=== PATIENT | male | born 1975 | race Caucasian/White ===

== ENCOUNTER 2017-07-06 07:28 | Outpatient (CLI) | payer OTHER ==
[2014-08-07 08:27] VITALS: BP 141/86
[2017-07-06 08:26] LABS: eGFR (African) > 60; eGFR (Non-African) > 60
== END 2017-07-06 07:30 ==
LOC: LAB 07:28
PROVIDERS: ATTEND Family Medicine
DX: I10 Essential (primary) hypertension (principal)
CPT/HCPCS: 36415; 80053; 80061

== ENCOUNTER 2017-12-11 11:58 | Emergency (ER) | payer OTHER ==
--- NOTE | 2017-12-11 12:03 | ED Physician Documentation ---
Upper Extremity Injury - HISTORIAN Historian: patient - [facility] Chief Complaint: Upper Extremity Injury Additional Information: Patient sustained a laceration to the right 4th diget while installing a sink. Cut his finger on a piece of metal. No numbness or weakness noted to the finger. Onset: just prior to arrival Where: home Associated Symptoms: denies: tingling, numbness distally Modifying Factors: pain on movement - ROS CONST: no problems - PAST HX Past History: Rt handed, other (HTN) Immunizations: tetanus (2015) Allergies/Adverse Reactions: Allergies Allergy/AdvReac Type Severity Reaction Status Date / Time No Known Allergies Allergy Verified 12/11/17 12:00 - SOCIAL HX Smoking History: non-smoker Alcohol Use: rarely Drug Use: none - FAMILY HX Family History: no significant history - VITAL SIGNS Vital Signs: Vital Signs Temp Pulse Resp BP Pulse Ox 98.4 F 61 20 132/71 96 12/11/17 13:06 12/11/17 13:06 12/11/17 13:06 12/11/17 13:06 12/11/17 13:06 - REVIEWED ASSESSMENTS Nursing Assessment Reviewed: Yes Vitals Reviewed: Yes Procedures Wound Location: upper extremity (right 4th diget) Wound Length: 3.8 Wound's Depth, Shape: flap Wound Explored: clean Betadine Prep?: No (Dyn-a-hex) Anesthesia: 2% Lidocaine Volume of Anesthetic: 1.8ml Wound Debrided: minimal Wound Repaired With: sutures Suture Size/Type: 5:0 Number of Sutures: 7 Layer Closure?: No ED Results Lab/Radiology - Orders Orders: ED Orders Category Date Time Status Lidocaine 2% 20ml Vial [Xylocaine] Med 12/11/17 13:08 Discontinued 400 mg .ROUTE .STK-MED ONE Upper Extremity Injury Physic - Physical Exam General Appearance: no acute distress (3.8cm c shape laceration), alert Hand: non-tender, normal ROM, laceration (right 4th diget). No: ecchymosis Wrist: normal inspection, non-tender, no evidence of injury Elbow/Forearm: normal inspection, non-tender Shoulder: normal inspection, non-tender Neuro/Vascular/Tendon: no vascular compromise, motor nml, sensation nml Skin: warm,dry, other Neck/Back: nml inspection Resp/CVS: chest non-tender, breath sounds nml, heart sounds nml, no resp. distress, lungs clear, reg. rate & rhythm Abdomen: non-tender Discharge Clincal Impression: Laceration of finger of right hand Referrals: Terrence Jack MD [Primary Care Provider] - 2 Days Additional Instructions: Keep laceration clean and dry. May let water run over it but do not soak. Watch for any infection. Remove sutures in 7-10 days. Condition: Stable Disposition: 01 HOME, SELF-CARE Decision to Admit: NO Date of Decison to Admit: 12/11/17 Decision Time: 12:52
[2017-12-11] MEDS ORDERED: Lidocaine 2% 20ml Vial IP ONE (12:30)
[2017-12-11] MEDS ORDERED: Lidocaine 2% 20ml Vial ONE (13:08)
[2017-12-11 13:15] VITALS: BP 132/71
== END 2017-12-11 13:06 | disposition home or self-care (01) ==
LOC: ED 11:58
DX: S61.214A Laceration without foreign body of right ring finger without damage to nail, initial encounter (principal); W26.8XXA Contact with other sharp object(s), not elsewhere classified, initial encounter; Y92.018 Other place in single-family (private) house as the place of occurrence of the external cause; Y93.9 Activity, unspecified; Y99.9 Unspecified external cause status
CPT/HCPCS: 12002

== ENCOUNTER 2018-07-06 08:44 | Outpatient (CLI) | payer OTHER ==
[2018-07-06 09:24] LABS: eGFR (Non-African) > 60
== END 2018-07-06 08:46 ==
LOC: LAB 08:44
PROVIDERS: ATTEND Family Medicine
DX: I10 Essential (primary) hypertension (principal); R53.82 Chronic fatigue, unspecified
CPT/HCPCS: 36415; 80053; 84443